=== PATIENT | male | born 1950 | race Caucasian/White ===

== ENCOUNTER 2025-01-11 15:04 | Emergency (ER) | payer OTHER, MEDICARE, SELFPAY ==
[2025-01-11 15:05] VITALS: BMI 26.4
--- NOTE | 2025-01-11 15:50 | XR_ITS ---
Examination: AP chest single view TECHNIQUE: AP portable chest single view Date and time: January 11, 2025, 1554 hours Comparison August 08, 2018, PET/CT scan August 06, 2023 INDICATIONS: Coughing chest pain shortness of breath today, diagnosis carcinoma of the tonsil FINDINGS: Normal heart size Scarring at the right lung base Rounded ovoid density with calcified rim in the right lower lung zone, 31 mm Air density devoid of lung in the right lower hemithorax, 6.6 cm, which may correspond to bleb noticed in the right lower lobe on the PET/CT scan August 06, 2023 No pulmonary edema Bronchial sutures in the upper right lung calcification in the lower lung zone IMPRESSION: COPD No pneumonia or pulmonary edema Consider CT chest without contrast follow-up to confirm right lower lobe bleb rather than loculated pneumothorax lower lateral right chest
--- NOTE | 2025-01-11 15:50 | EKG_ITS ---
[facility] Test Date: 2025-01-11 Pat Name: VICTORIA TAYLOR Department: Room: - Gender: Male Sourcing Assistant: : [id number] Requested By: ED Temporary Provider Order Number: [id number] Reading MD: ED Temporary Provider Measurements Intervals [place] Rate: 68 P: 71 CO: 192 QRS: 51 QRSD: 86 T: 81 QT: 373 QTc: 399 Interpretive Statements SINUS RHYTHM NONSPECIFIC T-WAVE ABNORMALITY Compared to ECG 08/08/2018 12:11:20 No significant changes /store/S0/[id number].pdf
--- NOTE | 2025-01-11 16:32 | EDNOTE_ITS ---
ED General RME/HPI General Chief complaint: Shortness of Breath/Dyspnea Stated complaint: DIFF BREATHING, CHEST PAIN WHEN HE COUGHS Time Seen by Provider: 01/11/25 16:29 Arrival date/time: 01/11/25 15:04 RME / HPI RME / HPI narrative: 74 year old male with history of COPD, hx of [place] fever with resection of right lung upper lobe 15 years ago, and throat CA 5 years ago presents to the ED for evaluation of sore throat, cough, headache, nasal congestion, and shortness of breath beginning 3 days ago. Accompanied by white spots located to the back of his throat. Patient states he had a telehealth video appt yesterday regarding his symptoms and prescribed empirical amoxicillin for possible strep; has taken a total of 4 doses. Denies fevers, chills, n/v/d, abdominal pain, n/v/d, or urinary symptoms. Related Data Home Medications ?Medication ?Instructions ?Recorded ?Confirmed amlodipine 10 mg tablet (Norvasc) 10 mg PO QDAY 08/08/18 aspirin 81 mg chewable tablet 81 mg PO QDAY 07/21/18 0 08/08/18 atorvastatin 80 mg tablet 80 mg PO QDAY 07/21/1808/08 magnesium oxide 420 mg tablet 420 mg PO QDAY 07/21/18 08/08/18 metoprolol tartrate 50 mg tablet 50 mg PO DAILY 08/08/18 losartan 25 mg tablet 25 mg PO QDAY 08/08/1808/08 Previous Rx's ?Medication ?Instructions ?Recorded benzonatate 100 mg capsule 100 mg PO TID PRN cough #20 caps 08/08/18 (Gloria Olmstead) clotrimazole 10 mg juan 10 mg PO 5 TIMES DAILY 10 da ys #50 01/11/25 ea oseltamivir 75 mg capsule (Tamiflu) 75 mg PO BID 5 day s #10 caps 01/11/25 Allergies Allergy/AdvReac Type Severity Reaction Status Date / Time No Known Allergies Allergy Verified 01/11/25 15:10 Review of Systems Review of Systems Systems Reviewed: All systems reviewed, normal except as documented Past Medical History Past Medical History CARDIAC: Positive Cardiac Disorders, Peripheral Vascular Disease, Hypercholesterolemia and Hypertension RESPIRATORY: Positive Chronic Obstructive Pulmonary Disease (COPD) and Asthma GASTROINTESTINAL: Positive Gastrointestinal Disorders GENITOURINARY: Positive Kidney Stones MUSCULOSKELETAL: Positive Arthritis OTHER HISTORY: Positive Chemotherapy, Radiation Therapy, Chicken Pox, Measles and Cancer (throat) Surgical History SURGICAL: Positive Cardiac Surgery and Gastrostomy Social History SMOKING STATUS: Current every day smoker ED Exam Narrative Physical exam: Constitutional: Awake, alert, nontoxic, no acute distress, elderly HEENT: NC, AT, EOMI, white patches to soft palate and mucous membrane consistent with thursh Neck: Supple CV: scattered rhonchi; no m/r/g Lungs: CTAB, no w/r/r, no respiratory distress. Abd: Soft, NT, NT, no HSM noted to palpation Extremities: No deformities, no edema noted Neuro: AAOx3, CN 2-12 GIBL, no acute neuro deficit noted. Skin: Warm, dry, intact Course Course Course Narrative: 1800h: Labs reviewed. Influenza AMB positive. Remainder of labs reviewed. No significant acute concerning abnormalities noted. Chest x-ray reviewed -to follow-up with PCP regarding same as clinically he is not short of breath, no hypoxia noted. Symptoms appear secondary to influenza. Would consider Tamiflu given recent onset of symptoms and will give treatment for oral thrush as well. Stable for discharge home. Advised on close outpatient follow-up with PCP in the next few days for recheck. Return precautions to emergency for any worsening symptoms. Quality Measures none Orders Category Date Time Status Bedside COVID-19 Antigen Test NOW Care 01/11/25 16:32 Active Bedside Influenza A&B Antigen Test NOW Care 01/11/25 16:32 Completed EKG (ED ONLY) *Do not use* NOW Care 01/11/25 15:50 Completed Insert IV STAT Care 01/11/25 16:31 Active CXR [XR chest 1V] Stat Exams 01/11/25 15:50 Completed EKG (ED Only) Stat Exams 01/11/25 15:50 Draft B-Type Natriuretic Peptide Stat Lab 01/11/25 16:41 Completed CBC Stat Lab 01/11/25 16:41 Completed Comprehensive Metabolic Panel Stat Lab 01/11/25 16:41 Completed Magnesium Stat Lab 01/11/25 16:41 Completed Partial Thromboplastin Time Stat Lab 01/11/25 16:41 Completed Prothrombin Time with INR Stat Lab 01/11/25 16:41 Completed Strep A Rapid Stat Lab 01/11/25 16:32 Ordered Troponin I Stat Lab 01/11/25 16:41 Completed Urinalysis Stat Lab 01/11/25 17:05 Completed Vital Signs Vital signs: Vital Signs Temperature 98.2 F 01/11/25 16:34 Pulse Rate 68 01/11/25 16:34 Respiratory Rate 18 01/11/25 16:34 Blood Pressure 156/76 H 01/11/25 16:34 Pulse Oximetry (%) 95 01/11/25 16:34 Oxygen Delivery Method Room Air 01/11/25 16:34 Pulse ox is 95% on room air which is adequate. Discharge Plan Plan Patient Disposition: HOME (Self Care) Patient condition on transfer: Stable Prescriptions/Referrals Prescriptions/Med Rec: New clotrimazole 10 mg juan 10 mg PO 5 TIMES DAILY 10 Days Qty: 50 0RF oseltamivir [Tamiflu] 75 mg capsule 75 mg PO BID 5 Days Qty: 10 0RF No Action losartan 25 mg Tablet 25 mg PO QDAY benzonatate [Tessalon Perles] 100 mg capsule 100 mg PO TID PRN (Reason: cough) Qty: 20 0RF atorvastatin 80 mg Tablet 80 mg PO QDAY magnesium oxide 420 mg Tablet 420 mg PO QDAY aspirin 81 mg Tablet,Chewable 81 mg PO QDAY metoprolol tartrate 50 mg Tablet 50 mg PO DAILY amlodipine [Norvasc] 10 mg Tablet 10 mg PO QDAY Referrals: Marianna Card MD [Primary Care Provider] - In 1 week Problem List Clinical Impression: Influenza A, Oral thrush Patient/Caregiver Discharge Instructions Education Materials: Darcie Infection: Thrush, ED Influenza (Adult) Additional Instructions: Allow the clotrimazole to dissolve slowly in mouth 5 times daily for the next 10 days for the oral thrush. Use Tamiflu twice daily for the next 5 days for influenza. Please be aware that you may still have symptoms from influenza for the next week at least. Ensure adequate fluid intake at home to prevent dehydration. Avoid any fast food, junk food, caffeine, alcohol at this time to help optimize the immune system during illness. Print Language: Yi Stand Alone Forms: Mariam Award Info., Patient Portal Info Letter MDM Narrative Sign out note: 1800h: Patient signed out pending labs and final disposition. [facility] hospital course: Catherine Adams am scribing for and in the presence of Dr. Salas. Clinical Information Provided by patient Medical Records [place] [facility] [place]s/Rx Considered, not Ordered None Labs/Rad/Tests considered, not Ordered None Chronic Illness/Social Conditions which may negatively complicate care or outcome(s)-explain: None or not applicable EKG Interpretation EKG #1: Date/time of EK01/11/25 16:36h EKG interpretation: NSR, rate 68, no STEMI Lab Interpretation Labs: interpreted by me Imaging Radiology reports / interpretation(s): Ordering Physician: Temporary Provider,ED Date of Service: 01/11/25 Procedure(s): XR chest 1V Accession Number(s): [id number] cc: Flip Baires MD; Temporary Provider,ED ~ Examination: AP chest single view TECHNIQUE: AP portable chest single view Date and time: January 11, 2025, 1554 hours Comparison August 08, 2018, PET/CT scan August 06, 2023 INDICATIONS: Coughing chest pain shortness of breath today, diagnosis carcinoma of the tonsil FINDINGS: Normal heart size Scarring at the right lung base Rounded ovoid density with calcified rim in the right lower lung zone, 31 mm Air density devoid of lung in the right lower hemithorax, 6.6 cm, which may correspond to bleb noticed in the right lower lobe on the PET/CT scan August 06, 2023 No pulmonary edema Bronchial sutures in the upper right lung calcification in the lower lung zone IMPRESSION: COPD No pneumonia or pulmonary edema Consider CT chest without contrast follow-up to confirm right lower lobe bleb rather than loculated pneumothorax lower lateral right chest Dictated By: Flip Baires MD Signed By: <Electronically signed by Flip Baires MD in OV> 01/11/25 1615 Medication Administration(s) none Diagnosis Most likely dx, and/or detailed dx discussion: Influenza A, oral thrush Dispositon Disposition: Discharge Home (Signed out pending final disposition)
[2025-01-11 16:34] VITALS: BP 156/76; PULSE 68; RESP 18; TEMP 36.8; O2SAT 95
[2025-01-11 16:52] LABS: Basophils # (Auto) 0.0 Thou/mm3 (0.0-0.2); Basophils % (Auto) 0 % (0-2.5); Eosinophils # (Auto) 0.2 Thou/mm3 (0.0-0.5); Eosinophils % (Auto) 2 % (0-10); Hematocrit 42.7 % (41.0-53.0); Hemoglobin 14.4 g/dL (13.5-16.0); Immature Granulocytes Auto 0.05 Thou/mm3 (0.00-0.00); Lymphocytes # (Auto) 0.5 Thou/mm3 (1.0-4.8); Lymphocytes % (Auto) 4 % (10-50); Mean Corpuscular HGB Conc 33.7 g/dl (31.0-37.0); Mean Corpuscular Hemoglobin 32.6 pg (25.0-35.0); Mean Corpuscular Volume 97 fL (80-100); Monocytes # (Auto) 0.9 Thou/mm3 (0.0-0.8); Monocytes % (Auto) 8 % (0-12); Neutrophils # (Auto) 10.4 Thou/mm3 (1.8-7.7); Neutrophils % (Auto) 86 % (37-80); Nucleated Red Blood Cell # 0.00 Thou/mm3 (0.00-0.00); Nucleated Red Blood Cell % 0 /100 WBC (0); Platelet Count 178 Thou/mm3 (140-440); RDW Standard Deviation 43.9 fL (35.1-43.9); Red Blood Count 4.42 Miln/mm3 (4.50-5.90); White Blood Count 12.1 Thou/mm3 (3.8-10.6)
[2025-01-11 17:14] LABS: B-Type Natriuretic Peptide 36 pg/mL (0-100)
[2025-01-11 17:18] LABS: Collection Type, Urine Clean Catch
[2025-01-11 17:18] LABS: Alanine Aminotransferase 16 U/L (10-49); Albumin, Serum 4.4 gm/dL (3.4-4.8); Albumin/Globulin Ratio 1.5 (1.2-2.2); Alkaline Phosphatase 156 U/L (46-116); Anion Gap 5 (7-16); Aspartate Amino Transferase 20 U/L (0-34); BUN/Creatinine Ratio 15 Ratio (12-20); Bilirubin,Total 1.0 mg/dL (0.3-1.2); Blood Urea Nitrogen 18 mg/dL (9-23); Calcium 10.0 mg/dL (8.3-10.6); Calcium (Corrected) 10.0 mg/dL (8.5-10.1); Carbon Dioxide 27.3 mMol/L (20.0-31.0); Chloride 107 mMol/L (98-107); Creatinine (Component) 1.2 mg/dL (0.6-1.3); Estimated Creatinine Clearance 55.8 mL/min (>60); Globulin 2.9 gm/dL (2.3-3.5); Glucose 127 mg/dL (74-106); Magnesium 1.8 mg/dL (1.6-2.6); Osmolality,Calculated 281 (275-295); Potassium 4.4 mMol/L (3.4-5.1); Sodium 139 mMol/L (136-145); Total Protein 7.3 gm/dL (5.7-8.2); Troponin I < 0.002 ng/mL (0.0-0.045); eGFR > 60 See Note
[2025-01-11 17:26] LABS: Bilirubin,Urine Negative (Negative); Blood,Urine Negative (Negative); Clarity,Urine Clear (Clear/Hazy); Color,Urine Yellow (Lt Yel-Yel); Glucose, Urine Negative (Negative); Ketones,Urine Negative (Negative); Leukocyte Esterase,Urine Positive (Negative); Nitrite,Urine Negative (Negative); PH,Urine 6.0 (5.0-7.0); Protein,Urine 1+ (Neg - Trace); RBC,Urine 2 /hpf (0-3); Specific Gravity,Urine 1.028 (1.001-1.035); Squamous Epithelial Cell,Urine 2 /hpf (0-5); Urobilinogen,Urine Negative mg/dL (0.0-1.0); WBC,Urine 5 /hpf (0-5)
[2025-01-11 17:48] LABS: INR 1.1 (0.9-1.3); Partial Thromboplastin Time 26.1 Seconds (22.0-36.0); Prothrombin Time 11.7 Seconds (9.0-12.2)
[2025-01-11 19:40] LABS: Strep A Rapid Negative (Negative)
== END 2025-01-11 19:51 | disposition home or self-care (01) ==
PROVIDERS: Emergency Provider Family Medicine; PCP Family Medicine
DX: J10.1 Influenza due to other identified influenza virus with other respiratory manifestations (principal); B37.0 Candidal stomatitis; J44.9 Chronic obstructive pulmonary disease, unspecified; C09.9 Malignant neoplasm of tonsil, unspecified
CPT/HCPCS: 36415; 71045; 80053; 81001; 83735; 83880; 84484; 85025; 85610; 85730; 87400; 87651; 87811; 93005; 99283